=== PATIENT | male | born 1940 | race Caucasian/White ===

== ENCOUNTER 2017-05-21 11:06 | Emergency (ER) | payer OTHER ==
[~2017-05-21] VITALS: Ht 175.3 cm; Wt 90.6 kg
[2017-05-21 11:09] VITALS: BP 144/66; PULSE 64; RESP 16; TEMP 97.8; O2SAT 97
[2017-05-21] MEDS ORDERED: AMLO5TAB2 PO (11:23)
--- NOTE | 2017-05-21 11:34 | PD ---
HPI . Right lower leg injury Chief Complaint: Injury Time Seen by Provider: 11:19 Travel History International Travel<30 days: No Contact w/Intl Traveler<30days: No Traveled to known affect area: No History of Present Illness HPI Patient presents with a chief complaint of an injury to his right lower leg. He inadvertently stepped on a piece of cellophane a couple days ago causing his foot to slide out from underneath him. This resulted in a twisting injury to the knee and ankle. He has treated his injury with warm water soaks. He has subsequently developed increasing swelling especially in the foot. He does presents to us today for further evaluation of his injuries. He states that his pain is very mild and is exacerbated by certain movements and by standing. PFSH Past Medical History Hx Anticoagulant Therapy: No Anxiety: Yes Cardiovascular Problems: Yes (htn on meds) Diminished Hearing: No Hypertension: Yes Tetanus Vaccination: Unknown Influenza Vaccination: Yes Past Surgical History Eye Surgery: Yes (CATERACT) Social History Alcohol Use: Yes (SOCIAL) Tobacco Use: No Substance Use: No Allergies-Medications (Allergen,Severity, Reaction): Coded Allergies: aspirin (Unverified Adverse Reaction, Mild, UPSET STOMACH, 05/21/17) Reported Meds & Prescriptions Reported Meds & Active Scripts Active Tylenol-Codeine #3 (Acetaminophen-Codeine) 300-30 mg Tab 1 Tab PO Q4H PRN Reported Amlodipine (Amlodipine Besylate) 5 Mg Tab 5 Mg PO DAILY Review of Systems Except as stated in HPI: all other systems reviewed are Neg Musculoskeletal: Positive: Arthralgias, Limited ROM, Edema Physical Exam Narrative GENERAL: Awake and alert and in no acute distress. SKIN: Warm and dry. Intact. Bruise in the right mid jeronimo. HEAD: Normocephalic/atraumatic. EYES: Pupils are equal. Extraocular movements are intact. NECK: Normal range of motion. CARDIOVASCULAR: Regular rate and rhythm. RESPIRATORY: Nonlabored respirations. MUSCULOSKELETAL: He has some swelling of the right foot. He has tenderness to compression of the malleolus. The ankle is stable. There is no deformity. NEUROLOGICAL: Nonfocal. PSYCHIATRIC: Appropriate mood and affect. Data Data Last Documented VS Vital Signs Date Time Temp Pulse Resp B/P (MAP) Pulse Ox O2 Delivery O2 Flow Rate FiO2 05/21/17 11:18 Room Air 05/21/17 11:09 97.8 64 16 144/66 (92) 97 Orders Orders Ankle, Complete (Zfi1cut) (05/21/17 11:20) Knee, Complete (4vws) (05/21/17 11:24) Tibia/Fibula (Ap/Lat) (05/21/17 11:24) Crutches (05/21/17 12:03) Multipolus Boot (05/21/17 ) MDM Medical Decision Making Medical Screen Exam Complete: Yes Emergency Medical Condition: Yes Differential Diagnosis Differential diagnosis of extremity trauma includes but is not limited to fracture, sprain or strain, dislocation, contusion Narrative Course This patient presents complaining with right knee and ankle pain following a slip and fall 2 days ago. X-rays are pending. X-ray to my interpretation shows a nondisplaced oblique lateral malleolus fracture. The other x-rays were negative. The patient will be placed in a boot and will be given crutches. He'll be given a prescription for Tylenol No. 3 to take as needed for pain. I will give him a referral to orthopedics for follow-up. Diagnosis Primary Impression: Right knee sprain Qualified Codes: S83.91XA - Sprain of unspecified site of right knee, initial encounter Additional Impressions: Contusion of right leg Qualified Codes: S80.11XA - Contusion of right lower leg, initial encounter Fracture of right ankle, lateral malleolus Qualified Codes: S82.64XA - Nondisplaced fracture of lateral malleolus of right fibula, initial encounter for closed fracture Patient Instructions: Ankle Sprain (DC), Contusion in Adults (DC), General Instructions, Knee Sprain (DC), RICE Therapy (ED) Med/Other Pt SpecificInfo: Prescription(s) given Scripts Acetaminophen-Codeine (Tylenol-Codeine #3) 300-30 mg Tab 1 TAB PO Q4H Y for PAIN, #12 TAB 0 Refills Prov: Rima Krueger MD 05/21/17 Disposition: 01 DISCHARGE HOME Condition: Stable Rima Krueger MD May 21, 2017 11:33
[2017-05-21] MEDS ORDERED: TYLETAB34 PO (11:41)
--- NOTE | 2017-05-21 12:21 | RADRPT ---
EXAM DATE/TIME: 05/21/2017 11:39 [facility] COMPARISON: No previous studies available for comparison. INDICATIONS : Fall. Pain lateral ankle. MEDICAL HISTORY : None. SURGICAL HISTORY : None. ENCOUNTER: Initial ACUITY: 1 day PAIN SCORE: 8/10 LOCATION: Right lateral FINDINGS: Mildly displaced fracture lateral malleolus with overlying soft tissue swelling. No dislocation. No o ther fractures identified. CONCLUSION: 1. Mildly displaced fracture lateral malleolus. Giovani Neri MD on May 21, 2017 at 12:19 Board Certified Radiologist. This report was verified electronically.
--- NOTE | 2017-05-21 12:22 | RADRPT ---
EXAM DATE/TIME: 05/21/2017 11:39 [facility] COMPARISON: No previous studies available for comparison. INDICATIONS : Fall. Right lower leg pain. MEDICAL HISTORY : None. SURGICAL HISTORY : None. ENCOUNTER: Initial ACUITY: 1 day PAIN SCORE: 6/10 LOCATION: Right lateral FINDINGS: Mildly displaced fracture lateral malleolus. Right tibia intact. CONCLUSION: 1. Mildly displaced fracture lateral malleolus. Giovani Neri MD on May 21, 2017 at 12:20 Board Certified Radiologist. This report was verified electronically.
--- NOTE | 2017-05-21 12:22 | RADRPT ---
EXAM DATE/TIME: 05/21/2017 11:39 [facility] COMPARISON: No previous studies available for comparison. INDICATIONS : Fall. Right knee pain. MEDICAL HISTORY : None. SURGICAL HISTORY : None. ENCOUNTER: Initial ACUITY: 1 day PAIN SCORE: 6/10 LOCATION: Right lateral FINDINGS: Four view examination of the right knee demonstrates no evidence of fracture or dislocation. Bony mi neralization is normal. The articular surfaces are intact. Small joint effusion. CONCLUSION: 1. No acute bony abnormalities. Trace joint fluid. Giovani Neri MD on May 21, 2017 at 12:19 Board Certified Radiologist. This report was verified electronically.
== END 2017-05-21 13:22 | disposition home or self-care (01) ==
LOC: PHEFT 11:06
DX: S83.91XA Sprain of unspecified site of right knee, initial encounter (principal); S80.11XA Contusion of right lower leg, initial encounter; S82.61XA Displaced fracture of lateral malleolus of right fibula, initial encounter for closed fracture; I10 Essential (primary) hypertension; W01.0XXA Fall on same level from slipping, tripping and stumbling without subsequent striking against object, initial encounter
CPT/HCPCS: 29515; 73564; 73590; 73610; 99284; E0113